=== PATIENT | male | born 1985 | race Caucasian/White ===

== ENCOUNTER 2017-10-29 06:26 | Emergency (ER) | payer OTHER ==
[2017-10-29 07:30] LABS: Hematocrit 46.9 % (35.5-45.6); Hemoglobin 15.3 gm/dl (11.8-15.2); Mean Corpuscular HGB Conc 33 % (32-34); Mean Corpuscular Hemoglobin 28 pg (28-32); Mean Corpuscular Volume 85 fl (84-94); Platelet Count 308 K/mm3 (140-440); Red Blood Count 5.54 M/mm3 (3.65-5.03); Red Cell Distribution Width 13.9 % (13.2-15.2)
[2017-10-29 07:46] LABS: BUN/Creatinine Ratio 13; Blood Urea Nitrogen 9 mg/dL (9-20); Hemolysis Index 3
--- NOTE | 2017-10-29 11:03 | Cat Scan Report ---
CT scan of head without IV contrast: History: New onset of seizures. Findings: Ventricles are normal in size and midline in location. No evidence of acute ischemic, hemorrhage or mass. No extra axial fluid collection. Normal brainstem and cerebellum Suspicion of small polyps or retention cyst frontal sinus. Impression: No acute intracranial abnormality. Sinus disease.
[2017-10-29] MEDS ORDERED: NACL 0.9% 1000 ML 1,000 ML IV ONE (11:12)
--- NOTE | 2017-10-29 12:21 | Emergency Department Report ---
ED Seizure HPI - General Chief Complaint: Seizure Stated Complaint: SEIZURE Time Seen by Provider: 10/29/17 09:18 Source: patient, EMS Mode of arrival: Stretcher Limitations: No Limitations - History of Present Illness Initial Comments: She is a 32-year-old gentleman who is presenting with seizure. Patient's states that in the night while the patient was sleeping he yelled out and was noted to have tonic-clonic movement for approximately 1 minute. Patient was snoring afterwards and was poorly conscious for the next hour. [facility] was called and transported to the emergency department. Patient did bite his tongue there is was no urinary incontinence. Patient states he just feels fatigued with slight headache at this time. Patient denies any recent fevers chills drug use change of medications sleep deprivation or head injuries at this time. She does state that he drinks a large amount of watery states he drinks approximately 5-6 L of water daily. MD Complaint: seizure - Related Data Previous Rx's Medication Instructions Recorded Last Taken Type Nystas/Diphen/Xyl Visc/Mylanta 30 ml MM Q4H 5 Days ml 10/29/17 Unknown Rx [Magic Mouthwash] levETIRAcetam [Keppra] 500 mg PO BID #14 tablet 10/29/17 Unknown Rx Allergies Allergy/AdvReac Type Severity Reaction Status Date / Time No Known Allergies Allergy Unverified 10/29/17 06:50 ED Review of Systems ROS: Stated complaint: SEIZURE Other details as noted in HPI Comment: All other systems reviewed and negative ED Past Medical Hx - Past Medical History Previous Medical History?: Yes Hx Diabetes: Yes - Surgical History Past Surgical History?: Yes Hx Appendectomy: Yes - Social History Smoking Status: Never Smoker Substance Use Type: None - Medications Home Medications: Home Medications Medication Instructions Recorded Confirmed Last Taken Type Nystas/Diphen/Xyl Visc/Mylanta 30 ml MM Q4H 5 Days ml 10/29/17 Unknown Rx [Magic Mouthwash] levETIRAcetam [Keppra] 500 mg PO BID #14 tablet 10/29/17 Unknown Rx ED Physical Exam - General Limitations: No Limitations General appearance: alert, in no apparent distress - Head Head exam: Present: atraumatic, normocephalic - Eye Eye exam: Present: normal appearance - ENT ENT exam: Present: mucous membranes moist. Absent: other - Neck Neck exam: Present: normal inspection - Respiratory Respiratory exam: Present: normal lung sounds bilaterally. Absent: respiratory distress - Cardiovascular Cardiovascular Exam: Present: regular rate, normal rhythm. Absent: systolic murmur, diastolic murmur, rubs, gallop - GI/Abdominal GI/Abdominal exam: Present: soft, normal bowel sounds - Rectal Rectal exam: Present: deferred - Extremities Exam Extremities exam: Present: normal inspection - Back Exam Back exam: Present: normal inspection - Neurological Exam Neurological exam: Present: alert, oriented X3 - Psychiatric Psychiatric exam: Present: normal affect, normal mood - Skin Skin exam: Present: warm, dry, intact, normal color. Absent: rash ED Course Vital Signs 10/29/17 10/29/17 06:46 07:25 Temperature 97.7 F 98.2 F Pulse Rate 91 H 92 H Respiratory 16 15 Rate Blood Pressure 119/76 Blood Pressure 119/76 126/74 [Left] O2 Sat by Pulse 98 99 Oximetry ED Medical Decision Making - Lab Data Result diagrams: 10/29/17 06:58 10/29/17 06:58 - Radiology Data Radiology results: image reviewed interpreted by me: A head CT without contrast is within normal limits - Medical Decision Making The only correctable laboratory study was found that could possibly have led to the patient's seizures is slightly low sodium. Patient does drink large amounts of water daily. Told the patient to restrict his water intake to 4 L a day. Patient states he usually drinks about 5-6 L size bottles of water every day. This may have led to some hyponatremia. Patient will also be discharged home with follow-up with neurology. Patient was loaded with Her be sent home with a week's worth As well. Critical care attestation.: If time is entered above; I have spent that time in minutes in the direct care of this critically ill patient, excluding procedure time. ED Disposition Clinical Impression: New onset seizure, Hyponatremia Disposition: -01 TO HOME OR SELFCARE Is pt being admited?: No Does the pt Need Aspirin: No Condition: Stable Instructions: Non-epileptic Seizures (ED) Prescriptions: levETIRAcetam [Keppra] 500 mg PO BID #14 tablet Nystas/Diphen/Xyl Visc/Mylanta [Magic Mouthwash] 30 ml MM Q4H 5 Days ml Referrals: PRIMARY CARE, [Primary Care Provider] - 3-5 Days
[2017-10-29 13:54] VITALS: BP 102/78
== END 2017-10-29 13:35 | disposition home or self-care (01) ==
LOC: ED 06:26
DX: E87.1 Hypo-osmolality and hyponatremia (principal); R56.9 Unspecified convulsions; E11.9 Type 2 diabetes mellitus without complications
CPT/HCPCS: 36415; 70450; 80048; 85027; 96360; 99285; J7030